=== PATIENT | female | born 1945 | race Caucasian/White ===

== ENCOUNTER 2016-04-07 16:43 | Inpatient (IN) | payer MEDICARE ==
[2016-04-07] MEDS ORDERED: MECLIZINE 12.5 MG TAB PO PRN (17:56)
[2016-04-07] MEDS ORDERED: ACETAMINOPHEN 650 MG SUPP PR PRN (17:57)
[2016-04-07] MEDS ORDERED: PROMETHAZINE 12.5 MG SUPP PR PRN (17:57)
[2016-04-07] MEDS ORDERED: SODIUM CHLORIDE 0.9% 3 ML FLUSH FLUSH PRN (18:01)
[2016-04-07] MEDS: ENOXAPARIN 40 MG/0.4 ML PFS SQ SCH (19:00)
[2016-04-07] MEDS ORDERED: Vaccine Screening Complete SCH (19:00)
[2016-04-07 19:01] LABS: AUTOMATED BASOPHIL 0.8 % (0-2); AUTOMATED EOSINOPHIL 0.5 % (0-5); AUTOMATED LYMPH 19.4 % (17-44); AUTOMATED MONOCYTE 6.7 % (3-10); AUTOMATED NEUTROPHIL 72.6 % (45-76)
[2016-04-07] MEDS: SODIUM CHLORIDE 0.9% 3 ML FLUSH FLUSH SCH (19:01)
[2016-04-07 19:13] LABS: BLOOD UREA NITROGEN 11 MG/DL (7-17); CALCIUM 9.9 MG/DL (8.4-10.2); CALCULATED OSMOLALITY 270 MOs/Kg (270-290); CHLORIDE 100 mEq/L (98-107); GLUCOSE 94 MG/DL (70-99); SODIUM LEVEL 141 mEq/L (137-146); TOTAL PROTEIN 7.5 G/DL (6.3-8.2)
[2016-04-07] MEDS: ALPRAZOLAM 0.25 MG TAB PO PRN (22:08)
[2016-04-07] MEDS ORDERED: PANTOPRAZOLE 40 MG TAB PO ONE (22:21)
[2016-04-08] MEDS: ACETAMINOPHEN 325 MG/TAB TABLET PO PRN ×2 (01:37→09:09)
[2016-04-08] MEDS: PROMETHAZINE 25 MG TAB PO PRN ×2 (01:38→09:10)
[2016-04-08 05:28] VITALS: BMI 27.3
[2016-04-08] MEDS: PANTOPRAZOLE 40 MG TAB PO SCH (06:06)
[2016-04-08] MEDS: SODIUM CHLORIDE 0.9% 3 ML FLUSH FLUSH SCH ×2 (06:06→17:43)
--- NOTE | 2016-04-08 11:49 | DIRPT ---
CLINICAL DATA: 71-year-old female with dizziness and vertigo for several months getting worse. Subsequent encounter. EXAM: MRI HEAD WITHOUT CONTRAST TECHNIQUE: Multiplanar, multiecho pulse sequences of the brain and surrounding structures were obtained without intravenous contrast. COMPARISON: 12/20/[address] 07/14/2008 brain MR. FINDINGS: No acute infarct or intracranial hemorrhage. Mild progression of significant white matter changes throughout the hemispheres bilaterally most notable periventricular/ periatrial region. This may reflect result of small vessel disease. Other considerations include that secondary to; vasculitis, demyelinating process, inflammatory process, metabolic abnormality, result of toxic exposure or CADASIL (cerebral autosomal dominant arteriopathy with subcortical infarcts and leukoencephalopathy). No intracranial mass lesion noted on this unenhanced exam. No hydrocephalus Major intracranial vascular structures are patent. Partial opacification inferior left mastoid air cells without obstructing lesion noted. Minimal mucosal thickening ethmoid sinus air cells. Post lens replacement otherwise orbital structures unremarkable. Partially empty sella incidentally noted. Cervical medullary junction and pineal region within normal limits. Septated 1.5 cm cystic appearing structure inferior to the left mandibular ramus of indeterminate etiology not appreciated on the prior exam. IMPRESSION: No acute infarct or intracranial hemorrhage. Mild progression of significant white matter changes throughout the hemispheres bilaterally most notable periventricular/ periatrial region. This may reflect result of small vessel disease. Other considerations as noted above. Septated 1.5 cm cystic appearing structure inferior to the left mandibular ramus of indeterminate etiology not appreciated on the prior exam. Electronically Signed By: Guillermo Garibay M.D. On: 04/08/2016 11:46
--- NOTE | 2016-04-08 15:13 | GENMEDPROG ---
Chief Complaint: Intractable dizziness Subjective Note: Patient states she was diagnosed with Meniere's disease in December [place] [address] Welch. She states HCTZ was started as well as some Xanax and/or Valium. She does take the Xanax occasionally. She states over the last 3 weeks she has had difficulty doing her household activities because she is vertiginous with some nausea when she moves around. ENT recommended hearing aids for her which she has not been able to afford. She has a lot of questions about reflux and her osteoporosis Current Medication List: Reviewed Currently: Reports: Nausea and Vomiting (No vomiting), Reflux Sx. Denies: Cough , Wheezing, NAQVI, SOB, Sputum, Tobacco Use/Hx, Fever/Chills, Ambulating DVT Prophylaxis: Yes - Physical Examination Vital Signs and I&O: Last Vital Signs Temp 98.3 F 04/08/16 15:00 Pulse 78 04/08/16 15:00 Resp 18 04/08/16 15:00 BP 117/54 L 04/08/16 15:00 Pulse Ox 96 04/08/16 15:00 Oxygen Pulse Oxygen Saturation 96 O2 Device Room Air Oxygen Flow Rate Fraction of Inspired Oxygen ( FIO2) Intake & Output 04/05/16 04/06/16 04/07/16 04/08/16 23:59 23:59 23:59 23:59 Intake Total 405 Output Total 500 1100 Balance -500 695 Patient's weight 63.503 kg General: Alert, Oriented x3, Mild distress (Anxious) HEENT: PERRLA, EOMI, Anicteric Sclera, Mucous membr. moist/pink Neck: Normal inspection, No Masses palpable Lymphatics: Normal Respiratory: Normal - CTA Cardiovascular: Regular rate and rhythm. negative: LE Edema GI: Normal bowel sounds, Soft, Non tender, No hepatospenomegaly Extremities/Musculoskeletal: Normal pulses. negative: Edema Skin: Warm,Dry and Intact Neurological: Normal speech, Normal tone, Cranial nerves 3-12 NL Psych/Mental Status: Anxious Lab/DI/Studies Reviewed: Intake & Output 04/05/16 04/06/16 04/07/16 04/08/16 23:59 23:59 23:59 23:59 Intake Total 605 Output Total 500 1400 Balance -500 -795 Patient's weight 63.503 kg 04/07/16 18:35 04/07/16 18:35 MRI brain IMPRESSION: No acute infarct or intracranial hemorrhage. Mild progression of significant white matter changes throughout the hemispheres bilaterally most notable periventricular/ periatrial region. This may reflect result of small vessel disease. Other considerations as noted above. Septated 1.5 cm cystic appearing structure inferior to the left mandibular ramus of indeterminate etiology not appreciated on the prior exam. Electronically Signed By: Guillermo Garibay M.D. On: 04/08/2016 11:46 - Assessment (1) Vertigo Acute R42 - DIZZINESS AND GIDDINESS Comment/Plan: Intractable. She has failed meclizine and p.r.n. Xanax. Given that her MRI is normal I will try twice a day scheduled Ativan at a low dose. Will continue her HCTZ. Will check labs RPR TSH B12 vitamin D but doubt these it will contribute anything. Will ask PT to see as the patient said she was getting some home physical therapy by [facility] and it was helping but her insurance no longer covered it and it was discontinued this month (2) Hypertension Chronic I10 - ESSENTIAL (PRIMARY) HYPERTENSION Qualifiers: Hypertension type: essential hypertension Qualified Code(s): I10 - Essential (primary) hypertension Comment/Plan: Continue outpatient medications (3) Hyperlipidemia Chronic E78.5 - HYPERLIPIDEMIA, UNSPECIFIED Qualifiers: Hyperlipidemia type: unspecified Qualified Code(s): E78.5 - Hyperlipidemia , unspecified Comment/Plan: Continue outpatient medications (4) Osteoporosis Acute M81.0 - AGE-RELATED OSTEOPOROSIS W/O CURRENT PATHOLOGICAL FRACTURE Comment/Plan: Check vitamin-D (5) Acid reflux Acute K21.9 - GASTRO-ESOPHAGEAL REFLUX DISEASE WITHOUT ESOPHAGITIS Qualifiers: Esophagitis presence: esophagitis presence not specified Qualified Code(s) : K21.9 - Gastro-esophageal reflux disease without esophagitis Comment/Plan: Continue PPI Case Care Discussed with: Patient, Nursing Staff Education/Counseling Given To: Patient Education/Counseling Given Regarding: Diagnosis, Treatment, Prognosis Total Time: 35 minutes Critical Care: No Couseling Time (>50% in counseling/coordination): Yes Code: 29424 (12+)
[2016-04-08] MEDS ORDERED: LATANOPROST 0.005% OPHTH SOLN 2.5 ML OU SCH (16:00)
[2016-04-08] MEDS: ENOXAPARIN 40 MG/0.4 ML PFS SQ SCH (17:42)
[2016-04-08] MEDS: LORAZEPAM 0.5 MG TAB PO SCH (17:43)
[2016-04-08] MEDS: LATANOPROST 0.005% OPHTH SOLN 2.5 ML OU SCH (21:18)
[2016-04-09] MEDS: LORAZEPAM 0.5 MG TAB PO SCH ×2 (05:24→16:03)
[2016-04-09] MEDS: SODIUM CHLORIDE 0.9% 3 ML FLUSH FLUSH SCH ×2 (05:58→18:15)
[2016-04-09] MEDS: PANTOPRAZOLE 40 MG TAB PO SCH (05:58)
[2016-04-09] MEDS: HYDROCHLOROTHIAZIDE 25 MG TAB PO SCH (08:57)
[2016-04-09] MEDS: Aspirin (Orange Enteric Coated) 325 mg tab PO SCH (08:57)
[2016-04-09] MEDS: ACETAMINOPHEN 325 MG/TAB TABLET PO PRN ×2 (11:48→22:25)
--- NOTE | 2016-04-09 12:27 | GENMEDPROG ---
Subjective Note: Patient is feeling a little bit better. She was able to ambulate some with physical therapy. She is quite anxious about going home as she thinks she will end up back in the hospital. She did better when she was getting home health but this was discontinued due to her insurance. The patient used to drive but has stopped because of the dizziness that started in December. Current Medication List: Reviewed Currently: Reports: Nausea and Vomiting (No vomiting), Reflux Sx (Wants to talk about her hiatal hernia), Ambulating (Is ambulating some today). Denies: Cough , Wheezing, NAQVI, SOB, Sputum, Tobacco Use/Hx, Fever/Chills DVT Prophylaxis: Yes - Physical Examination Vital Signs and I&O: Last Vital Signs Temp 97.9 F 04/09/16 05:16 Pulse 73 04/09/16 05:16 Resp 16 04/09/16 05:16 BP 131/69 04/09/16 05:16 Pulse Ox 93 04/09/16 05:16 Oxygen Pulse Oxygen Saturation 93 O2 Device Room Air Oxygen Flow Rate Fraction of Inspired Oxygen ( FIO2) Intake & Output 04/06/16 04/07/16 04/08/16 04/09/16 23:59 23:59 23:59 23:59 Intake Total 605 125 Output Total 500 1400 800 Balance -500 795 -675 Patient's weight 63.503 kg General: Alert, Oriented x3, Mild distress (Anxious) HEENT: Anicteric Sclera, Mucous membr. moist/pink Neck: Normal inspection, No Masses palpable Lymphatics: Normal Respiratory: Normal - CTA Cardiovascular: Regular rate and rhythm. negative: LE Edema GI: Normal bowel sounds, Soft, Non tender, No hepatospenomegaly Extremities/Musculoskeletal: Normal pulses. negative: Edema Skin: Warm,Dry and Intact Neurological: Normal Steady Gait (She does hang on to furniture when she can.), Normal speech, Normal tone, Cranial nerves 3-12 NL Psych/Mental Status: Anxious Lab/DI/Studies Reviewed: Laboratory Results - last 24 hr 04/09/16 04/09/16 04/09/16 07:20 07:20 07:20 Vitamin B12 503 TSH 2.46 RPR Nonreactive - Assessment (1) Vertigo Acute R42 - DIZZINESS AND GIDDINESS Comment/Plan: She is improving with physical therapy. She is also doing well with scheduled Ativan twice a day instead of p.r.n. Xanax. MRI is normal. RPR TSH B12 are normal. Resource management is helping with a home health referral. (2) Hypertension Chronic I10 - ESSENTIAL (PRIMARY) HYPERTENSION Qualifiers: Hypertension type: essential hypertension Qualified Code(s): I10 - Essential (primary) hypertension Comment/Plan: Continue outpatient medications (3) Hyperlipidemia Chronic E78.5 - HYPERLIPIDEMIA, UNSPECIFIED Qualifiers: Hyperlipidemia type: unspecified Qualified Code(s): E78.5 - Hyperlipidemia , unspecified Comment/Plan: Continue outpatient medications (4) Osteoporosis Acute M81.0 - AGE-RELATED OSTEOPOROSIS W/O CURRENT PATHOLOGICAL FRACTURE Comment/Plan: Check vitamin-D (5) Acid reflux Acute K21.9 - GASTRO-ESOPHAGEAL REFLUX DISEASE WITHOUT ESOPHAGITIS Qualifiers: Esophagitis presence: esophagitis presence not specified Qualified Code(s) : K21.9 - Gastro-esophageal reflux disease without esophagitis Comment/Plan: Continue PPI Case Care Discussed with: Patient, Consultants, Nursing Staff Education/Counseling Given To: Patient Education/Counseling Given Regarding: Diagnosis, Treatment Total Time: 30 minutes Critical Care: No Couseling Time (>50% in counseling/coordination): No Code: 53500 (12+)
[2016-04-09] MEDS: ENOXAPARIN 40 MG/0.4 ML PFS SQ SCH (18:14)
[2016-04-09] MEDS: LATANOPROST 0.005% OPHTH SOLN 2.5 ML OU SCH (20:36)
[2016-04-09] MEDS: ALPRAZOLAM 0.25 MG TAB PO PRN (20:39)
[2016-04-10] MEDS: LORAZEPAM 0.5 MG TAB PO SCH (05:05)
[2016-04-10] MEDS: PANTOPRAZOLE 40 MG TAB PO SCH (05:05)
[2016-04-10] MEDS: ACETAMINOPHEN 325 MG/TAB TABLET PO PRN (05:05)
[2016-04-10] MEDS: SODIUM CHLORIDE 0.9% 3 ML FLUSH FLUSH SCH (05:06)
[2016-04-10 06:17] VITALS: TEMP 98.6
--- NOTE | 2016-04-10 09:21 | PCM.DCS92 ---
- Final/Secondary Discharge Diagnosis (1) Vertigo Acute R42 - DIZZINESS AND GIDDINESS Present on Admission: Yes Comment: She is improving with physical therapy. She is also doing well with scheduled Ativan twice a day instead of p.r.n. Xanax. MRI is normal. RPR TSH B12 are normal. Resource management is helping with a home health referral. (2) Physical debility Chronic R53.81 - OTHER MALAISE Present on Admission: Yes Comment: The patient walks with a walker at home. She apparently has a prescription for a new rolling walker. She has worked with physical therapy and is ambulating well with her walker. She does have some weakness and would benefit from home health physical therapy and this will be arranged as an outpatient. (3) Hypertension Chronic I10 - ESSENTIAL (PRIMARY) HYPERTENSION Present on Admission: Yes essential hypertension I10 - Essential (primary) hypertension Comment: Continue outpatient medications (4) Hyperlipidemia Chronic E78.5 - HYPERLIPIDEMIA, UNSPECIFIED Present on Admission: Yes unspecified E78.5 - Hyperlipidemia, unspecified Comment: Continue outpatient medications (5) Osteoporosis Acute M81.0 - AGE-RELATED OSTEOPOROSIS W/O CURRENT PATHOLOGICAL FRACTURE Comment: Check vitamin-D. Level is pending at the time of discharge (6) Acid reflux Acute K21.9 - GASTRO-ESOPHAGEAL REFLUX DISEASE WITHOUT ESOPHAGITIS Present on Admission: Yes esophagitis presence not specified K21.9 - Gastro-esophageal reflux disease without esophagitis Comment: Continue PPI Discharge Disposition: Discharge w/ Home Health Discharge Condition: Improved Cognitive Discharge Status: Unimpaired Fuctional Discharge Status: Walker Assistance, Ambulatory Dysfunction Home Medications / New Prescriptions: New Lorazepam [Ativan] 0.5 mg PO Q12H #30 tablet Continue Aspirin (OrangeEnteric Coated) [Ecotrin] 325 mg PO DAILY Esomeprazole Mag Trihydrate [Nexium] 40 mg PO DAILY Hydrocodone Bit/Acetaminophen [Roslyn 5-325 Tablet] 1 tab PO Q8H PRN PRN Reason: Pain Amlodipine [Norvasc] 5 mg PO DAILY Hydrochlorothiazide 25 mg PO DAILY Latanoprost 1 drop OU QHS Discontinued Meclizine HCl 12.5 mg PO BID PRN PRN Reason: Vertigo Alprazolam [Xanax] 0.25 mg PO BID PRN PRN Reason: Anxiety O2 Device: Room Air Diet at Discharge: Heart Healthy Activity: As Tolerated (With her rolling walker) Call Office For: Worsening Symptoms - DC Summary Notes Home Health Need / Half-Way Services:: The patient is is unable to drive because of her dizziness and unsteady gait. She does name for home physical therapy for gait training as noted by the physical therapy consult. She is considered homebound because of her inability to drive with her underlying dizziness Hospital Course Note:: Discharge summary on patient named ALON CHAN admitted to [facility] on 04/09/16 by Sterling Granger MD. Date of discharge is [ 04/10/2016. Ms Chan is a 71-year-old female who was apparently diagnosed with Meniere's disease in December of 2015. Her symptoms were initially controlled at home although they were waxing and waning. She was managing with some diuretic as well as intermittent meclizine and/or Xanax. She presented to her primary care physician's office with intractable symptoms and inability to care for herself at home and was admitted to the hospital for evaluation. The patient was admitted to a telemetry bed. There were no arrhythmias noted on the monitor throughout her hospitalization. Initially she was kept on her meclizine and Xanax but her symptoms persisted. For the 1st 2 days she was dizzy any time she picked her head up from the bed. To evaluate for stroke she underwent an MRI with results as stated below. There is no evidence of infarct or hemorrhage. The patient was evaluated by physical therapy. She was found to be somewhat weak and had general debility. She normally uses a rolling walker at home and this was used for evaluation with her. She was started on Ativan 0.5 mg q.12 hours routinely and this seemed to help her dizziness. At the time of discharge the patient has been able to ambulate for almost 24 hours. She does have some mild dizziness symptoms but is eating some. She has had no vomiting. She has worked well with physical therapy. She did request that lab work be done for other causes of stroke and a TSH was done which was normal at 2.46; B12 was normal at 503 ;RPR was nonreactive. Vitamin D was drawn per her request and is pending. Patient will be discharged to home. She was again told not to drive which she had discontinued on her own. I have asked her to discontinue her meclizine as well as her Xanax for now and see if her symptoms are better managed with twice a day Ativan. I have instructed her that her primary care physician may decide another management plan. Physical therapy has educated her that there is no specific physical therapy for many years disease. They are going to see her for generalized strengthening which would certainly help her. She was educated to always use her walker as that would help with her equilibrium. Questions were answered. Discharge Home Medication List Aspirin (OrangeEnteric Coated) [Ecotrin] 325 mg PO DAILY 11/30/13 [History Confirmed 04/07/16] Esomeprazole Mag Trihydrate [Nexium] 40 mg PO DAILY 11/30/13 [History Confirmed 04/07/16] Amlodipine [Norvasc] 5 mg PO DAILY 12/27/14 [History Confirmed 04/07/16] Hydrocodone Bit/Acetaminophen [Roslyn 5-325 Tablet] 1 tab PO Q8H PRN 12/27/14 [ History Confirmed 04/07/16] Hydrochlorothiazide 25 mg PO DAILY 04/07/16 [History Confirmed 04/07/16] Latanoprost 1 drop OU QHS 04/07/16 [History Confirmed 04/07/16] Lorazepam [Ativan] 0.5 mg PO Q12H #30 tablet 04/10/16 [Rx] New Discharge Medications (Rx) Lorazepam [Ativan] 0.5 mg PO Q12H #30 tablet 04/10/16 [Rx] MRI head IMPRESSION: No acute infarct or intracranial hemorrhage. Mild progression of significant white matter changes throughout the hemispheres bilaterally most notable periventricular/ periatrial region. This may reflect result of small vessel disease. Other considerations as noted above. Septated 1.5 cm cystic appearing structure inferior to the left mandibular ramus of indeterminate etiology not appreciated on the prior exam. Electronically Signed By: Guillermo Garibay M.D. On: 04/08/2016 11:46 Electronically Signed By: Guillermo Garibay MD Electronically Signed Date/Time: Code: 72879 (>30min.) - Physical Exam Vital Signs: Last Vital Signs Temp 98.6 F 04/10/16 06:00 Pulse 77 04/10/16 06:00 Resp 18 04/10/16 06:00 BP 132/56 L 04/10/16 06:00 Pulse Ox 94 04/09/16 17:12 Oxygen Pulse Oxygen Saturation 94 O2 Device Room Air Oxygen Flow Rate Fraction of Inspired Oxygen ( FIO2) Constitutional: No apparent distress Oriented to: Time, Person, Place - HEENT Head: Normal Eye: Normal. negative: Conjunctival Injection Oropharynx: Normal Tympanic Membrane: Normal Nose: negative: Congestion - Respiratory/Cardiovascular Respiratory: Normal - CTA Cardiovascular: Normal - GI Auscultation: Normal Palpation: Normal. negative: Enlarged liver, Enlarged spleen Tenderness: Non tender Rectal Exam: Deferred - Exam Deferred: Yes - Musculoskeletal Back: Other (kyphosis is noted) Extremities: Normal, Edema (Trace), Pedal Pulse - Integumentary Skin: Warm, Dry Lymphatics: Normal - Neurologic Memory Impaired: Normal Motor Function: Normal Cranial Nerve: Normal Cerebellar: Normal. negative: Ataxia, Past-Pointing, Tremor Mood Description: Anxious Thought: Coherent
[2016-04-10] MEDS: Aspirin (Orange Enteric Coated) 325 mg tab PO SCH (09:28)
[2016-04-10] MEDS: HYDROCHLOROTHIAZIDE 25 MG TAB PO SCH (09:28)
[2016-04-10 09:59] VITALS: BP 132/60; PULSE 81
== END 2016-04-10 12:11 | disposition home health service (06) | DRG 149 ==
LOC: MPS3 17:06 → OBSVTOIN 04-09 16:34
PROVIDERS: ADMIT Internal Medicine; ATTEND Family Medicine
DX: R42 Dizziness and giddiness (principal); I10 Essential (primary) hypertension; R53.81 Other malaise; E78.5 Hyperlipidemia, unspecified; M81.0 Age-related osteoporosis without current pathological fracture; K21.9 Gastro-esophageal reflux disease without esophagitis; G89.29 Other chronic pain; M54.9 Dorsalgia, unspecified; Z79.82 Long term (current) use of aspirin; Z79.899 Other long term (current) drug therapy
CPT/HCPCS: 70551; 80053; 82607; 82652; 84443; 85025; 86592; 96372; 97161; G0378; G8978; G8979; J1650; J3490